=== PATIENT | female | born 1955 | race Two or more races ===

== ENCOUNTER 2017-02-23 13:06 | Emergency (ER) | payer BC ==
[~2017-02-23] VITALS: Ht 152.4 cm; Wt 99.8 kg
[2017-02-23 13:26] VITALS: BP 154/68
[2017-02-23 16:56] LABS: Basophils # (auto) 0 uL; Basophils % (auto) 0.5 % (0.0-2.0); Eosinophils # (auto) 0.2 uL; Eosinophils % (auto) 2.8 % (0.0-7.0); Hematocrit 41.8 % (36.0-46.0); Lymphocytes # (auto) 2.4 uL; Lymphocytes % (auto) 28.2 % (10.0-50.0); Mean Corpuscular Hemoglobin 28.7 pg (28.0-32.0); Mean Corpuscular Hgb Conc. 33.5 g/dL (32.0-36.0); Mean Corpuscular Volume 85.7 fL (80.0-100.0); Mean Platelet Volume 10.2 fL (7.4-10.4); Monocytes # (auto) 0.5 uL; Monocytes % (auto) 5.6 % (0.0-12.0); Neutrophils # (auto) 5.3 uL; Neutrophils % (auto) 62.9 % (37.0-80.0); Platelet Count (auto) 318 10^3/uL (140-450); Red Cell Distribution Width 13.7 % (11.6-16.0); White Blood Cell 8.5 10^3/uL (4.4-10.8)
[2017-02-23 17:06] LABS: Albumin 3.6 g/dL (3.4-5.0); Anion Gap 9 (5-15); Aspartate Aminotransferase 22 U/L (15-37); BUN/Creatinine Ratio 15.4; Blood Urea Nitrogen 19 mg/dL (7-18); Calcium 8.7 mg/dL (8.5-10.1); Carbon Dioxide 25 mmol/L (21-32); Chloride 108 mmol/L (98-107); GFR African American 57 mL/min; GFR Non-African American 47 mL/min; Glucose 92 mg/dL (74-106); Potassium 3.8 mmol/L (3.5-5.1); Sodium 142 mmol/L (136-145)
[2017-02-23 17:10] LABS: Alkaline Phosphatase 81 U/L (45-117); Bilirubin, Total 0.4 mg/dL (0.2-1.0)
== END 2017-02-23 22:44 | disposition left against medical advice (07) ==
LOC: ER 13:20
DX: R07.9 Chest pain, unspecified (principal); R00.2 Palpitations; Z53.21 Procedure and treatment not carried out due to patient leaving prior to being seen by health care provider
CPT/HCPCS: 36415; 80053; 84484; 85025; 93005

== ENCOUNTER 2017-03-03 10:08 | Emergency (ER) | payer BC ==
[~2017-03-03] VITALS: Ht 152.4 cm; Wt 103.0 kg
[2017-03-03 11:01] LABS: Basophils # (auto) 0 uL; Basophils % (auto) 0.6 % (0.0-2.0); CONDITION Y; Eosinophils # (auto) 0.2 uL; Eosinophils % (auto) 2.6 % (0.0-7.0); Hematocrit 41.3 % (36.0-46.0); Hemoglobin 13.8 g/dL (12.2-16.2); Lymphocytes # (auto) 1.9 uL; Lymphocytes % (auto) 24.5 % (10.0-50.0); Mean Corpuscular Hemoglobin 28.5 pg (28.0-32.0); Mean Corpuscular Hgb Conc. 33.3 g/dL (32.0-36.0); Mean Corpuscular Volume 85.5 fL (80.0-100.0); Mean Platelet Volume 9.8 fL (7.4-10.4); Monocytes # (auto) 0.4 uL; Monocytes % (auto) 4.7 % (0.0-12.0); Neutrophils # (auto) 5.2 uL; Neutrophils % (auto) 67.6 % (37.0-80.0); Platelet Count (auto) 307 10^3/uL (140-450); Red Cell Distribution Width 14.2 % (11.6-16.0); White Blood Cell 7.8 10^3/uL (4.4-10.8)
[2017-03-03] MEDS ORDERED: SODIUM CHLORIDE 0.9% 500 ML IV ONE (11:30)
[2017-03-03 11:40] LABS: Albumin 3.6 g/dL (3.4-5.0); Alkaline Phosphatase 82 U/L (45-117); Anion Gap 11 (5-15); Aspartate Aminotransferase 23 U/L (15-37); BUN/Creatinine Ratio 16.3; Bilirubin, Total 0.5 mg/dL (0.2-1.0); Blood Urea Nitrogen 20 mg/dL (7-18); Carbon Dioxide 26 mmol/L (21-32); Chloride 103 mmol/L (98-107); GFR African American 57 mL/min; GFR Non-African American 47 mL/min; Glucose 189 mg/dL (74-106); Magnesium 2.2 mg/dL (1.6-2.6); Potassium 4.1 mmol/L (3.5-5.1); Sodium 140 mmol/L (136-145); Total Protein 7.4 g/dL (6.4-8.2)
[2017-03-03 14:17] VITALS: BP 138/77
[2017-03-04 06:06] LABS: Thyroxine (T4) 7.5 ug/dL (4.5-12.0)
== END 2017-03-03 14:47 | disposition home or self-care (01) ==
LOC: ER 10:08
DX: R00.2 Palpitations (principal); E11.65 Type 2 diabetes mellitus with hyperglycemia; Z77.22 Contact with and (suspected) exposure to environmental tobacco smoke (acute) (chronic); Z90.710 Acquired absence of both cervix and uterus
CPT/HCPCS: 36415; 71020; 80053; 83735; 84443; 84484; 85025; 93005; 94761; 96360; 99285; J7040

== ENCOUNTER 2024-10-14 12:58 | Emergency (ER) | payer BC, MEDICARE ==
[~2024-10-14] VITALS: Ht 154.9 cm; Wt 89.3 kg
--- NOTE | 2024-10-14 13:37 | ED.PDOC ---
GI ASSESSMENT HPI Comments 68-year-old female presents with a chief complaint of abdominal pain x 4 days. Patient reports that her pain is localized to her LUQ, nonradiating, describes as aching, and rates her pain a 7/10. Patient mentions that she is supposed to get scheduled for an endoscopy, but that it is not until December or January. Patient denies any nausea, vomiting, diarrhea. No other symptoms or modifying factors present at this time. Chief Complaint: Abdominal Pain Time Seen by MD: 13:31 Primary Care Provider: trina Reviewed Notes: Medications, Allergies Allergies: Coded Allergies: NO KNOWN ALLERGIES (Unverified , 03/03/17) Home Meds Active Scripts Sucralfate (CARAFATE) 1 Gm Tab, 1 GM OR BID for 20 Days, #40 TAB Prov:TEO MIMS MD 10/14/24 Famotidine (PEPCID TABLET) 20 Mg Tb, 1 TAB PO BID PRN for 20 Days, #40 TAB 5 Refills Prov:TEO MIMS MD 10/14/24 Information Source: Patient Mode of Arrival: Ambulatory Timing: Days Duration: Since onset Prehospital treatment: None Quality: Aching Vomitus: None Stool: Normal Severity: Moderate Recent: None Recent Hx of: None Pain Location: LUQ Past Medical History PAST MEDICAL HISTORY: DM Surgical History: Appendectomy, Hysterectomy, Tonsillectomy DIRECTOR EMERG[employer] SERVICES History: No Pertinent DIRECTOR EMERGENCY SERVICES History Family History Family History: Unobtainable Social History Smoker: Secondhand Alcohol: Denies ETOH Use Drugs: Denies Drug Use Lives In: Home Constitutional: denies: chills, diaphoresis, fatigue, fever, malaise, sweats, weakness, others EENTM: denies: blurred vision, double vision, ear bleeding, ear discharge, ear drainage, ear pain, ear ringing, eye pain, eye redness, hearing loss, mouth pain, mouth swelling, nasal discharge, nose bleeding, nose congestion, nose pain, photophobia, tearing, throat pain, throat swelling, voice changes, others Respiratory: denies: cough, hemoptysis, orthopnea, SOB at rest, shortness of breath, SOB with excertion, stridor, wheezing, others Cardiovascular: denies: chest pain, dizzy spells, diaphoresis, Dyspnea on exertion, edema, irregular heart beat, left arm pain, lightheadedness, palpitations, PND, syncope, others Gastrointestinal: reports: abdominal pain; denies: abdomen distended, blood streaked bowels, constipated, diarrhea, dysphagia, difficulty swallowing, he matemesis, melena, nausea, poor appetite, poor fluid intake, rectal bleeding, rectal pain, vomiting, others Genitourinary: denies: abnormal vagina bleeding, burning, dyspareunia, dysuria, flank pain, frequency, hematuria, incontinence, pain, , vagina discharge, urgency, others Neurological: denies: dizziness, fainting, headache, left sided numbness, left sided weakness, numbness, paresthesia, pre-existing deficit, right sided numbness, right sided weakness, seizure, speech problems, tingling, tremors, weakness, others Musculoskeletal: denies: back pain, gout, joint pain, joint swelling, muscle pain, muscle stiffness, neck pain, others Integumetry: denies: bruises, change in color, change in hair/nails, dryness, laceration, lesions, lumps, rash, wounds, others Allergic/Immunocompromised: denies: Difficulty Healing, Frequent Infections, Hives, Itching, others Hematologic/Lymphatic: denies: anemia, blood clots, easy bleeding, easy bruising, swollen glands, others Endocrine: denies: excessive hunger, excessive sweating, excessive thirst, excessive urination, flushing, intolerance to cold, intolerance to heat, unexplained weight gain, unexplained weight loss, others Psychiatric: denies: anxiety, bipolar disorder, depression, hopeless, panic disorder, schizophrenia, sleepless, suicidal, others All Other Systems: Reviewed and Negative Physical Exam General Appearance: Mild Distress, Normal HEENT: Normal ENT Inspection, Pharynx Normal, TMs Normal Neck: Full Range of Motion, Non-Tender, Normal, Normal Inspection Respiratory: Chest Non-Tender, Lungs Clear, No Accessory Muscle Use, No Respiratory Distress, Normal Breath Sounds Cardiovascular: No Edema, No JVD, No Murmur, No Gallop, Normal Peripheral Pu lses, Regular Rate/Rhythm Breast Exam: Deferred Gastrointestinal: No Organomegaly, Non Tender, No Pulsatile Mass, Normal Bowel Sounds, Soft Genitalia: Deferred Pelvic: Deferred Rectal: Deferred Extremities: No calf tenderness, Normal capillary refill, Normal inspection, Normal range of motion, Non-tender, No pedal edema Musculoskeletal : Apperance: Normal Neurologic: Alert, financial services specialist II-XII nml as Tested, No Motor Deficits, Normal Affect, Normal Mood, No Sensory Deficits Cerebellar Function: Normal Reflexes: Normal Skin: Dry, Normal Color, Warm Lymphatic: No Adenopathy Was a procedure done? Was a procedure done?: No GI differential Dx Differential Diagnosis: Angina/ME, Bowel Obstruction, Diverticular disease, Gastritis/PUD, Gastroenteritis, GI hemorrhage, Hypovolemia, Ischemic Bowel, Other X-Ray, Labs, Meds, VS Vital Signs Date Time Temp Pulse Resp B/P (MAP) Pulse Ox O2 Delivery O2 Flow Rate FiO2 10/14/24 16:23 70 18 98 Room Air 0 10/14/24 16:23 97.6 70 18 126/74 (91) 98 97.6 10/14/24 13:50 97.8 73 16 142/92 (109) 99 97.8 10/14/24 13:50 73 16 99 Room Air* 0 21 10/14/24 13:17 98.4 95 17 138/78 (98) 99 Lab Test 10/14/24 13:39 10/14/24 13:35 10/14/24 13:15 Range/Units White Blood Count 8.0 4.4-10.8 10^3/uL Red Blood Count 5.01 4.0-5.20 10^6/uL Hemoglobin 14.7 12.2-16.2 g/dL Hematocrit 44.0 36.0-46.0 % Mean Corpuscular Volume 87.9 80.0-100.0 fL Mean Corpuscular Hemoglobin 29.3 28.0-32.0 pg Mean Corpuscular Hemoglobin Concent 33.4 32.0-36.0 g/dL Red Cell Distribution Width 13.4 11.8-14.3 % Platelet Count 252 140-450 10^3/uL Mean Platelet Volume 10.0 6.9-10.8 fL Neutrophils (%) (Auto) 65.2 37.0-80.0 % Lymphocytes (%) (Auto) 26.5 10.0-50.0 % Monocytes (%) (Auto) 5.7 0.0-12.0 % Eosinophils (%) (Auto) 2.3 0.0-7.0 % Basophils (%) (Auto) 0.3 0.0-2.0 % Neutrophils # (Auto) 5.2 1.6-8.6 10 ^3/uL Lymphocytes # (Auto) 2.1 0.4-5.4 10 ^3/uL Monocytes # (Auto) 0.5 0-1.3 10 ^3/uL Eosinophils # (Auto) 0.2 0-0.8 10 ^3/uL Basophils # (Auto) 0 0-0.2 10 ^3/uL Nucleated Red Blood Cells 0.1 % Sodium Level 138 136-145 mmol/L Potassium Level 3.9 3.5-5.1 mmol/L Chloride Level 102 98-107 mmol/L Carbon Dioxide Level 26 20-31 mmol/L Anion Gap 10 5-15 Blood Urea Nitrogen 12 9-23 mg/dL Creatinine 1.14 H 0.550-1.02 mg/dL Glomerular Filtration Rate Calc 52 >90 mL/min BUN/Creatinine Ratio 10.5 10.0-20.0 Serum Glucose 143 H 74-106 mg/dL Calcium Level 10.3 8.7-10.4 mg/dL Total Bilirubin 0.8 0.2-1.0 mg/dL Aspartate Amino Transferase (AST) 21 13-40 U/L Alanine Aminotransferase (ALT) 17 7-40 U/L Alkaline Phosphatase 113 46-116 U/L Troponin I High Sensitivity < 3 L </=34 ng/L Total Protein 7.5 5.7-8.2 g/dL Albumin 4.8 3.2-4.8 g/dL Lipase 48 12-53 U/L Urine Color Colorless Yellow Urine Clarity Clear Clear Urine pH 7.0 5.0-9.0 Urine Specific [place] 1.005 1.001-1.035 Urine Protein Negative Negative Urine Ketones Negative Negative Urine Blood Negative Negative /uL Urine Nitrite Negative Negative Urine Bilirubin Negative Negative Urine Urobilinogen Normal Negative mg/dL Urine Leukocyte Esterase Negative Negative /uL Urine RBC None seen 0 - 4 /hpf Urine Microscopic WBC < 1 0-5 /HPF Urine Squamous Epithelial Cells Few <5 /hpf Urine Bacteria None seen None Seen /hpf Urine Glucose Normal Normal mg/dL POC Glucose 168 H 70-106 mg/dl Current Medications Medications (Trade) Dose Ordered Sig/Silvana Route Start Time Stop Time Status Last Admin Sodium Chloride 500 ml @ 500 mls/hr Q1H ONCE IVB 10/14/24 13:30 10/14/24 14:29 DC 10/14/24 13:58 Time of 1ST Reevaluation: 14:01 Reevaluation 1ST: Unchanged Time of 2ND Reevaluation: 15:55 Reevaluation 2ND: Improved Patient Education/Counseling: Diagnosis, Treatment, Prognosis Family Education/Counseling: Diagnosis, Treatment, Prognosis Departure 1 Departure Time of Disposition: 16:00 Impression: Primary Impression: LUQ abdominal pain Additional Impression: Palpitations Disposition: 01 HOME / SELF CARE / HOMELESS Condition: Stable e-Prescriptions Sucralfate (CARAFATE) 1 Gm Tab 1 GM OR BID for 20 Days, #40 TAB Prov: TEO MIMS MD 10/14/24 Famotidine (PEPCID TABLET) 20 Mg Tb 1 TAB PO BID PRN for 20 Days, #40 TAB 5 Refills Prov: TEO MIMS MD 10/14/24 Critical Care Note Critical Care Time?: No Stability Stability form required: No I personally scribed for TEO MIMS MD ([email or web address]) on 10/14/24 at 13:37. Electronically submitted by Georgi Coker ([email or web address]). TEO MIMS MD Oct 14, 2024 13:37
[2024-10-14 13:38] LABS: Urine Bacteria None Seen /hpf (None Seen)
[2024-10-14 13:50] VITALS: PULSE 73; RESP 16; O2SAT 99
[2024-10-14] MEDS: SODIUM CHLORIDE 0.9% 500 ML IVB ONE (13:58)
[2024-10-14 14:03] LABS: Urine Blood Negative /uL (Negative); Urine Clarity Clear (Clear); Urine Color Colorless (Yellow); Urine Protein, UAD Negative (Negative); Urine Specific Gravity 1.005 (1.001-1.035); Urine Squamous Epithelial Cell FEW /hpf (<5); Urine Urobilinogen Normal (Negative); Urine WBC < 1 /HPF (0-5)
[2024-10-14 14:17] LABS: Basophils # (auto) 0 10 ^3/uL (0-0.2); Basophils % (auto) 0.3 % (0.0-2.0); Eosinophils # (auto) 0.2 10 ^3/uL (0-0.8); Eosinophils % (auto) 2.3 % (0.0-7.0); Hemoglobin 14.7 g/dL (12.2-16.2); Lymphocytes # (auto) 2.1 10 ^3/uL (0.4-5.4); Lymphocytes % (auto) 26.5 % (10.0-50.0); Mean Corpuscular Hemoglobin 29.3 pg (28.0-32.0); Mean Corpuscular Hgb Conc. 33.4 g/dL (32.0-36.0); Mean Corpuscular Volume 87.9 fL (80.0-100.0); Monocytes # (auto) 0.5 10 ^3/uL (0-1.3); Monocytes % (auto) 5.7 % (0.0-12.0); Neutrophils # (auto) 5.2 10 ^3/uL (1.6-8.6); Neutrophils % (auto) 65.2 % (37.0-80.0); Nucleated Red Blood Cells % 0.1 %; Platelet Count (auto) 252 10^3/uL (140-450); Red Blood Cells 5.01 10^6/uL (4.0-5.20); Red Cell Distribution Width 13.4 % (11.8-14.3)
[2024-10-14 14:21] LABS: Alanine Aminotransferase 17 U/L (7-40); Albumin 4.8 g/dL (3.2-4.8); Alkaline Phosphatase 113 U/L (46-116); Anion Gap 10 (5-15); Aspartate Aminotransferase 21 U/L (13-40); BUN/Creatinine Ratio 10.5 (10.0-20.0); Blood Urea Nitrogen 12 mg/dL (9-23); Calcium 10.3 mg/dL (8.7-10.4); Carbon Dioxide 26 mmol/L (20-31); Chloride 102 mmol/L (98-107); Lipase 48 U/L (12-53); Potassium 3.9 mmol/L (3.5-5.1); Sodium 138 mmol/L (136-145)
[2024-10-14 14:22] LABS: Bilirubin, Total 0.8 mg/dL (0.2-1.0); Total Protein 7.5 g/dL (5.7-8.2)
[2024-10-14 14:35] LABS: Glucose 143 mg/dL (74-106)
[2024-10-14] MEDS: IOHEXOL 300 MG/ML 100ML BOTTLE IJ ONE (14:55)
--- NOTE | 2024-10-14 15:23 | DVH ---
Procedure: CT CT AB PEL WITH IV CON ONLY 10/14/2024 02:48 PM Indication: ABD PAIN Comparison Study: None available at time of dictation. Technique: Axial images were obtained and reformatted in coronal and sagittal planes. All CT scans at this medical facility are performed using dose modulation techniques as appropriate t o a performed exam including the following: Automated exposure control was utilized; adjustment of th e MA and/or KV according to patient size; and use of iterative reconstruction technique. CT Dose: CTDI volume is 24.08 mGy. Dose-length product is 1276.73 mGy*cm FINDINGS: Lower neck: Unremarkable. Cardiomediastinal: The heart is normal in size. Aorta is normal in caliber. No mediastinal lymphadeno robinson. Lungs: No focal pulmonary opacity. No pleural effusion. No pneumothorax. Hepatobiliary: Unremarkable. Spleen: Unremarkable. Pancreas: Unremarkable. Adrenal Glands: Unremarkable. tract: The kidneys are normal in size bilaterally without hydronephrosis or nephrolithiasis. The urinary bladder is unremarkable. GI tract: The stomach is grossly normal in appearance. Nondistended fluid-filled small bowel loops ar e seen in the lower abdomen. Fecal like material is noted in terminal ileum. Mild fecal retention s een. No significant colonic diverticular disease. The appendix is not visualized. No inflammatory ch dieter is noted in the right lower quadrant. Lymphatics: No mesenteric, retroperitoneal or periportal lymphadenopathy. Vasculature: The abdominal aorta is normal in in caliber. Pelvic Organs: Unremarkable. Bones/soft tissues: Subcutaneous fat stranding in the bilateral lower abdominal quadrants likely at t he site of recent injections. Correlate clinically. Other: None. IMPRESSION: 1. Findings suggestive of slow bowel transit time with fecal like material in nondistended small beatrice l loops in the right lower quadrant. Ileus or developing obstruction can not be ruled out. No transi tion point identified in the current exam.
[2024-10-14] MEDS ORDERED: SUCR1TAB31 OR (15:58)
[2024-10-14] MEDS ORDERED: FAMO20TA10 PO (15:58)
[2024-10-14 16:23] VITALS: BP 126/74; PULSE 70; RESP 18; TEMP 97.6; O2SAT 98
== END 2024-10-14 16:26 | disposition home or self-care (01) ==
LOC: ER 12:58
DX: R10.12 Left upper quadrant pain (principal); R00.2 Palpitations; E11.9 Type 2 diabetes mellitus without complications; Z90.49 Acquired absence of other specified parts of digestive tract; Z90.710 Acquired absence of both cervix and uterus; Z90.89 Acquired absence of other organs
CPT/HCPCS: 36415; 74177; 80053; 81001; 82962; 83690; 84484; 85025; 99285; Q9967; 96360